=== PATIENT | female | born 1995 | race Caucasian/White ===

== ENCOUNTER 2024-04-25 17:29 | Outpatient (CLI) | payer OTHER, SELFPAY ==
[2024-04-25 22:02] LABS: Chlamydia DNA Amplified* NOT DETECTED (No Detected); GC DNA Amplified* NOT DETECTED (No Detected)
== END 2024-04-25 17:30 | disposition home or self-care (01) ==
PROVIDERS: Visit Provider Physician Assistant
DX: Z34.91 Encounter for supervision of normal pregnancy, unspecified, first trimester (principal); Z3A.12 12 weeks gestation of pregnancy
CPT/HCPCS: 86592; 86703; 86704; 86706; 86762; 86787; 86803; 86850; 86900; 86901; 87086; 87340; 87491; 87591

== ENCOUNTER 2024-06-16 10:03 | Outpatient (CLI) | payer OTHER, SELFPAY ==
--- NOTE | 2024-06-16 10:15 | CRLHL7_ITS ---
For Patients: As a result of the Century Cures Act, medical imaging exams and procedure reports are released immediately into your electronic medical record. You may view this report before your referring provider. If you have questions, please contact your health care provider. INDICATION: Evaluate anatomy. COMPARISON: none TECHNIQUE: Real time cherry scale imaging of the fetus was performed as well as color Doppler analysis of the umbilical vessels. FINDINGS: Sonographic imaging demonstrates a single living intrauterine gestation. Fetus demonstrates a regular cardiac rate of 141 beats per minute. Fetus has a vertex position. The placenta lies anteriorly without evidence of placenta previa. Edge of the placenta is located 4.6 cm from the internal cervical os. Amniotic fluid volume appears normal. Single deepest vertical pocket: 4.7 cm. The cervix is closed and measures 4.2 cm in length. The composite ultrasound gestational age is calculated at 20 weeks 0 days with an estimated sonographic due date of 11/03/2024. The estimated weight is 338 grams which lies at the 65th %. The following biometric measurements were obtained: Biparietal diameter: 4.7 cm/20 weeks 2 days 70th% Head circumference: 17.7 cm/20 weeks 1 day 59th% Abdominal circumference: 14.7 cm/20 weeks 0 days 50th% Femur length: 3.3 cm/20 weeks 2 days 61st% The HC/AC ratio measures: 1.20 range (1.08-1.25) On anatomic survey, there is a normal appearance of the cerebral ventricles, cavum septi pellucidi, cisterna magna and cerebellum. The nose, lips, and facial profile appear normal. The cervical, thoracic and lumbar spine are well visualized and appear normal. There is a normal four-chamber heart view and the left and right ventricular outflow tracts appear normal. The diaphragm and stomach appear normal. Normal bladder. Bilateral pelviectasis measuring 4.8 millimeters on the right and 3.8 millimeters on the left. There is a normal three-vessel cord and cord insertion site. The four extremities appear normal. IMPRESSION: Concordance of clinical and sonographic dating. Bilateral renal pelviectasis measuring up to 4.8 millimeters. Remainder of the anatomic survey is normal. Follow-up in the 3rd trimester recommended. Dictated by John Mcgowan MD @ 06/16/2024 1:17:19 PM (Electronically Signed)
== END 2024-06-16 10:04 | disposition home or self-care (01) ==
LOC: US 10:04
PROVIDERS: Visit Provider Registered Nurse
DX: Z34.92 Encounter for supervision of normal pregnancy, unspecified, second trimester (principal); Z3A.20 20 weeks gestation of pregnancy
CPT/HCPCS: 76805

== ENCOUNTER 2024-07-14 07:04 | Outpatient (CLI) | payer OTHER, SELFPAY ==
--- NOTE | 2024-07-14 07:15 | CRLHL7_ITS ---
For Patients: As a result of the Century Cures Act, medical imaging exams and procedure reports are released immediately into your electronic medical record. You may view this report before your referring provider. If you have questions, please contact your health care provider. INDICATION: MISSING CARDIAC VIEWS AND DILATED RENAL PELVIS COMPARISON: 03/29/2024 TECHNIQUE: Real time cherry scale imaging of the fetus was performed. FINDINGS: Sonographic imaging demonstrates a single living intrauterine gestation. Fetus demonstrates a regular cardiac rate of 155 beats per minute. Fetus has a vertex position. The placenta lies anteriorly. Amniotic fluid volume appears normal and there is a single deepest vertical pocket: 5.2 cm. The estimated weight is 674gm which lies at the 59th %. BPD 56th percentile. HC 45th percentile. AC 47th percentile. FL 58th percentile. The HC/AC ratio measures 1.15 range (1.04-1.22). Normal kidneys and heart. IMPRESSION: Sonographic gestational age 24 weeks 2 days and sonographic due date of 11/01/2024. Good correlation with dates. Estimated weight is 59th percentile. Abdominal circumference 47th percentile. Normal kidneys. Cardiac structures normal Dictated by John Mcgowan MD @ 07/14/2024 3:52:58 PM (Electronically Signed)
== END 2024-07-14 07:05 | disposition home or self-care (01) ==
LOC: US 07:05
PROVIDERS: Visit Provider Obstetrics & Gynecology
DX: O36.8320 Maternal care for abnormalities of the fetal heart rate or rhythm, second trimester, not applicable or unspecified (principal); Z3A.24 24 weeks gestation of pregnancy
CPT/HCPCS: 76816

== ENCOUNTER 2024-08-04 07:58 | Outpatient (CLI) | payer OTHER, SELFPAY | END 2024-08-04 07:59 | disposition home or self-care (01) | LOC: NFLDREF 08-08 14:29 | PROVIDERS: Visit Provider Obstetrics & Gynecology | DX: Z34.92 Encounter for supervision of normal pregnancy, unspecified, second trimester (principal); Z3A.26 26 weeks gestation of pregnancy | CPT/HCPCS: 86592 ==

== ENCOUNTER 2024-10-06 14:05 | Outpatient (CLI) | payer OTHER, SELFPAY ==
[2024-10-07 15:18] LABS: Strep B DNA Probe Negative (Negative)
[2024-10-07 21:50] LABS: Strep B Susceptibility Needed? No
== END 2024-10-06 14:06 | disposition home or self-care (01) ==
LOC: NFLDREF 14:05
PROVIDERS: Visit Provider Obstetrics & Gynecology
DX: Z34.91 Encounter for supervision of normal pregnancy, unspecified, first trimester (principal); Z3A.12 12 weeks gestation of pregnancy
CPT/HCPCS: 87081; 87653

== ENCOUNTER 2024-11-01 16:07 | Inpatient (IN) | payer OTHER, SELFPAY ==
[2024-11-01 16:20] VITALS: PULSE 67; O2SAT 98
[2024-11-01 16:22] VITALS: BP 109/68; PULSE 71
[2024-11-01 16:33] VITALS: RESP 16; TEMP 36.4
[2024-11-01 16:55] VITALS: BMI 35.4
--- NOTE | 2024-11-01 16:59 | W.PM.LDBA ---
Subjective History of Present Illness Time Seen by Provider: 16:45 Date Seen: 11/01/24 Narrative: Patient is being admitted to Labor and Delivery for elective induction of labor. She is a 28 year old at 39 4/7 weeks gestation. Her full history and physical was dictated by Dr. Cox on 10/13/24. Please see this for details. She feels well. Admits to some low abdominal cramping, unchanged over the last couple of weeks. Endorses good movement. Denies unusual vaginal discharge, leakage of fluid or vaginal bleeding. Unaware of contractions. Specific Issues/Plans GIRL! -surprise name H&P done by Dr. Cox on 10/13/24. confirmation & first-trimester ultrasound with [facility], did not have 1st OB appointment/labs # history of depression, discontinued Wellbutrin with positive test. Doing well and would like to remain off at this time #Dilated renal pelviectasis measuring up to 4.8 mm @ 20 weeks 3rd trimester ultrasound recommended: normal at ~24 weeks at the time of f/u US Covid: 06/16/2024 Flu: 06/16/2024 Tdap: 08/25/2024 RSV: 09/08/24 GBS negative OB - Problem Based A/P Additional Plan (1) Encounter for induction of labor: Status: Acute Delivery/Labor/Induction Plan Induction method: per misoprostol protocol OB Result Labs Blood Type: B (+) positive Rubella: immune RPR/VDLR: nonreactive GBS Status: negative HBsAG: negative OB Exam Physical Exam Vital signs: Temp Pulse Resp BP Pulse Ox 97.5 F L 71 16 109/68 98 11/01/24 16:33 11/01/24 16:22 11/01/24 16:33 11/01/24 16:22 11/01/24 16:20 Detailed Labor and Delivery Exam Patient Gravid: Yes Dilation (cm): 2 Effacement (%): 70 Cervix position: mid Consistency: medium Cervical ripeness score: 7 Contraction Frequency: q 4 minutes Contraction duration (sec): 60 Tachysystole: No Contraction intensity: Mild Fetus (Single) Station: -1 Amniotic Membrane Status: intact Heart Rate Baseline: 120 Monitor Accelerations: Present Monitor Decelerations: None Field Administrative Assistant Variability: Moderate (6-25)
[2024-11-01] MEDS: miSOPROStoL 25 MCG/0.25 TABLET VAGINAL (17:00)
[2024-11-01 20:58] VITALS: BP 104/64; PULSE 82; RESP 18; TEMP 36.6
[2024-11-01] MEDS: hydrOXYzine pamoate 25 MG CAPSULE 100 MG PO (22:43)
[2024-11-01] MEDS: MORPHINE 10 MG/ML inj IM (22:44)
[2024-11-01 22:49] VITALS: BP 108/72; PULSE 70; RESP 16; TEMP 36.6
[2024-11-02] VITALS (81 sets, daily range): BP systolic 78–142; BP diastolic 44–77; PULSE 43–157; RESP 16; TEMP 36.5–37.6; O2SAT 98–100
[2024-11-02] MEDS: LACTATED RINGERS 1000 ML 1,000 ML 1200 ML IV (02:30)
[2024-11-02 02:45] LABS: Basophils Absolute Auto 0.02 K/uL (0.00-0.30); Basophils Percent Auto 0.2 % (0.0-3.0); Eosinophils Absolute Auto 0.06 K/uL (0.00-0.50); Eosinophils Percent Auto 0.5 % (0.0-7.0); Hematocrit 38.7 % (33.0-51.0); Hemoglobin* 12.9 gm/dL (12.0-16.0); Immature Granulocytes Abs Auto 0.04 K/uL (0.00-0.30); Immature Granulocytes Pct Auto 0.4 %; Lymphocytes Absolute Auto 2.46 K/uL (0.90-2.90); Lymphocytes Percent Auto 22.5 % (20-44); Mean Corpuscular HGB Conc 33 gm/dL (32-36); Mean Corpuscular Hemoglobin 32 pg (26-34); Mean Corpuscular Volume 95 fL (80-100); Monocytes Percent Auto 8.2 % (0.0-11.0); Neutrophils Absolute Auto 7.45 K/uL (1.7-7.0); Neutrophils Percent Auto 68.2 % (42.0-72.0); Platelet Count* 182 K/uL (140-440); RDW Coefficient of Variation % 13.7 % (11.5-15.5); Red Blood Count 4.07 m/uL (4.00-5.20); Slide Review Reflex No; White Blood Count* 10.92 K/uL (4.50-11.00)
[2024-11-02] MEDS: LACTATED RINGERS 1000 ML 1,000 ML 125 ML IV (03:31)
[2024-11-02] MEDS: ROPIVACAINE 0.2% 100 ml 100 ML 12 MG EPIDURAL ×2 (03:34→11:18)
[2024-11-02] MEDS: BUPIVACAINE 0.25% PF 10 ML 10 ML ML EPIDURAL (03:35)
--- NOTE | 2024-11-02 03:46 | PM.ANBPRC ---
[facility] Medical History Depression ?F32.A - Depression, unspecified (ICD-10) Surgical History History of wisdom tooth extraction ?K08.409 - Partial loss of teeth, unspecified cause, unspecified class (ICD-10) Social History Narrative: SOCIAL HISTORY: Occupation: Outpatient therapist. Marital status: Read. Orthodox/cultural needs: no. Chemical or radiation exposure: no. Pre- tobacco use: no. Pre- alcohol use: no. Current tobacco use: no. Current alcohol use: no. Recreational drug use: no. Dietary restrictions: no. Blood transfusion acceptable in an emergency: yes. PSYCHOSOCIAL HISTORY: History of depression or currently depressed: yes, history. Current or past physical, emotional, or sexual mistreatment: Denies. Problems that will make it hard to make it to appointments: Denies. What is your current living situation?: I presently have a place to live Problems where you live: no known problems In the past 12 months, utilities in danger of being shut off: no In past 12 months, lack of transportation kept you from medical appts, meetings, work, or getting things needed for daily living: no In the past 12 mos, have been you worried that your food would run out before you had money to buy more?: never true In the past 12 mos, the food you bought just didn't last and you didn't have money to buy more?: never true Smoking Status: Never smoker How often does anyone, including family, friends and others, physically hurt you: never How often does anyone, including family, friends and others, insult or talk down to you: never How often does anyone, including family, friends and others, threaten you with harm: never How often does anyone, including family, friends and others, scream or curse at you: never Meds Home Medications and Allergies Home Medications ?Medication ?Instructions ?Recorded ?Confirmed ?Type [id number] 3-fat com #1 27 1 cap PO DAILY 04/25/24 11/01/24 History mg-1 mg-300 mg capsule Allergies Allergy/AdvReac Type Severity Reaction Status Date / Time No Known Drug Allergies Allergy Verified 11/01/24 16:32 Results Labs Labs: Laboratory Results - last 24 hr 11/02/24 02:15 WBC 10.92 RBC 4.07 Hgb 12.9 Hct 38.7 MCV 95 MCH 32 MCHC 33 RDW Coeff of Rodrigue 13.7 Plt Count 182 Neut % (Auto) 68.2 Lymph % (Auto) 22.5 Kemper % (Auto) 8.2 Eos % (Auto) 0.5 Baso % (Auto) 0.2 Neut # (Auto) 7.45 H Lymph # (Auto) 2.46 [place]per # (Auto) 0.90 Eos # (Auto) 0.06 Baso # (Auto) 0.02 Abs Immat Gran (auto) 0.04 Imm/Tot Granulo (auto) 0.4 Vital Signs Vital Signs: Last Vital Signs Temp 97.9 F 11/02/24 00:59 Pulse 83 11/02/24 03:42 Resp 16 11/01/24 22:49 BP 132/58 L 11/02/24 03:42 Pulse Ox 99 11/02/24 03:40 Weight: 90.718 kg Height: 160.02 cm Anesthesia Procedures Epidural Insertion Patient Location: OB Start Time: 03:00 Stop Time: 03:47 Start Date: 11/02/24 Stop Date: 11/02/24 Reason for Block: procedure for pain Patient Position: sitting Performed By: Oscar Qursehi Preanesthetic Checklist: IV checked, risks and benefits discussed, monitors and equipment checked, pre-op evaluation, timeout performed and anesthesia consent Prep: chlorhexidine gluconate Monitoring: blood pressure monitoring, continuous pulse oximetry and heart rate Approach: midline Vertebral Space: lumbar (1-5) Epidural Technique: RANDA saline Needle Type: Tuohy needle Injection Technique: continuous catheter Needle gauge: 17 Needle Length (cm): 10 cm Needle Insertion Depth (cm): 7 Catheter Gauge: 19 Catheter Type: multi-orifice Catheter at skin depth (cm): 13 Test Dose Result: negative and lidocaine 1.5% with epinephrine 1 to 200,000
[2024-11-02] MEDS: PHENYLEPHRINE 100 MCG/ML SYRINGE IVP ×2 (04:23→04:44)
[2024-11-02] MEDS: LACTATED RINGERS 1000 ML 1,000 ML 525 ML IV (11:20)
[2024-11-02] MEDS: OXYTOCIN 30 unit/500 ML in NS 30 UNIT/500 ML BAG 300 UNIT IVPB (14:05)
--- NOTE | 2024-11-02 17:15 | W.PM.VAGDEL1 ---
Procedure Delivery date: 11/02/24 Procedure Done: Global Events: Labor Induction Intrapartal Events: Distress Delivery monitor: external FHT Route of delivery: Laceration description: Vaginal - 1st Degree Delivery repair: Vicryl Estimated blood loss (mL): 50 Anesthesia type: Epidural Disposition: floor Narrative: Eli is a 28 year-old admitted on 11/01/24 at 39 and 5/7 weeks gestation here for an elective induction of labor. She received one dose of misoprostol 25 mcg and went into labor on her own. GBS negative Labor Analgesia: Epidural Pitocin: Only for 3rd stage management SROM: 11/02/2024 at 0433, with clear fluid Labor onset: 11/02/2024 at 0247 Complete: 11/02/2024 at 1228 Pushin11/02/2024 at 1239 heart tones during second stage were category II due to variables with pushing but she was making great descent. Moderate variability and + accels. 3 minutes of bradycardia to 90s bpm at and At 1404 a viable female delivered in vertex OT presentation over intact via spontaneous vaginal delivery. The infant's body was delivered in the usual manner without difficulty. The infant was placed on maternal abdomen. The cord was clamped and cut after a 30-60 second delay. The nose and mouth were bulb suctioned. Infant weight: pending. 7 at 1 minute and 9 at 5 minutes. Shoulder dystocia: No. Nuchal cord: Tight nuchal x 2 with and additional loop wrapped around the body. Delivered through and then reduced. Placenta delivered spontaneously and complete at 1408 with a 3-vessel cord. Placenta examined and noted to be complete. The cervix and vagina were inspected for lacerations, and 1 degree vaginal laceration was noted. Perineal Skin intact. Laceration(s): 1st degree vaginal laceration, repaired with 2-0 vicryl Complications: None Estimated blood loss: 50 cc. Sponge and needles counts are correct. Mother and infant were stable at the time of this note. [place] Infant Infant Gender: Female total score - 1 minute: 7 total score - 5 minute: 9
[2024-11-02] MEDS: IBUPROFEN 600 MG TABLET PO (17:51)
[2024-11-03 00:06] VITALS: BP 98/74; PULSE 68; RESP 16; TEMP 36.6; O2SAT 98
[2024-11-03] MEDS: IBUPROFEN 600 MG TABLET PO ×4 (01:30→20:11)
[2024-11-03] MEDS: ACETAMINOPHEN 500 MG TABLET 1000 MG PO ×4 (04:15→23:16)
[2024-11-03 04:21] VITALS: BP 104/82; PULSE 64; RESP 16; TEMP 36.5; O2SAT 98
[2024-11-03 06:37] LABS: Hemoglobin* 11.3 gm/dL (12.0-16.0)
[2024-11-03 07:14] VITALS: BP 111/74; PULSE 70; RESP 16; TEMP 36.3; O2SAT 97
[2024-11-03] MEDS: DOCUSATE SODIUM 100 MG CAPSULE PO (07:35)
--- NOTE | 2024-11-03 07:54 | PM.OBPNVD1 ---
Documented by User: Katarina Garrett 11/03/24 08:15 OB - PN:Subj Subjective Time Seen by Provider: 07:15 Date Seen: 11/03/24 Narrative: Princess is a 28 y.o. G 1 P 1 who was admitted to L & D for Elective IOL.? She had a that was complicated. The patient feels well.? The pain is well controlled with current medications.? She reports uterine cramping and back pain as the main areas of pain.? She is breast feeding and reports sore nipples from tongue tie. the patient has done well.? Vitals have been stable.? She has remained afebrile.? Has a good appetite, is tolerating a general diet.? She is voiding without difficulty.? She is unsure if she is passing gas and has not had a bowel movement.?She is ambulating and denies any dizziness.? Has small amount of rubra lochia. Reports no clots. She is up ad clarisse in room, with and infant at bedside. holding and supportive. OB - PN: Obj Exam Physical Exam: Vital signs: Temp Pulse Resp BP Pulse Ox O2 Del Method 97.4 F L 70 16 111/74 97 Room Air 11/03/24 07:14 11/03/24 07:14 11/03/24 04:21 11/03/24 07:14 11/03/24 07:14 11/03/24 07:14 Narrative: Assessment non-remarkable except for those mentioned below. Fundus firm, even. Constitutional: Constitutional: no acute distress Detailed Abdominal Exam: Bowel sounds: hypoactive Routine Exam: Comments: Declined perineal exam Detailed Extremities Exam: Vascular: Peripheral pulses: 2+: radial (L), 2+: radial (R), 2+: dorsalis pedis (L) and 2+: dorsalis pedis (R) Detailed Upper Extremity Exam: Comments: Edema to hands bilaterally, +1 Detailed Lower Extremity Exam: Comments: Edema to lower extremities, bilaterally, +2 OB - PN: Obj Data Labs Labs: Laboratory Results - last 24 hr 11/03/24 06:27 Hgb 11.3 L OB - PN: A/P Delivery Assessment and Plan (1) care and examination immediately after delivery: Status: Acute (2) Lactating mother: Status: Acute Plan 28 yo, inpatient SP . Plan for DC tomorrow. Documented by User: Moira Marquez CNM 11/03/24 17:59 OB - PN:Subj Subjective Narrative: Princess is a 28 y.o. G 1 P 1 who was admitted to L & D for Elective IOL.? She had a that was complicated. The patient feels well.? The pain is well controlled with current medications.? She reports uterine cramping and back pain as the main areas of pain.? She is breast feeding and reports sore nipples from tongue tie. the patient has done well.? Vitals have been stable.? She has remained afebrile.? Has a good appetite, is tolerating a general diet.? She is voiding without difficulty.? She is unsure if she is passing gas and has not had a bowel movement.?She is ambulating and denies any dizziness.? Has small amount of rubra lochia. Reports no clots. She is up ad clarisse in room, with and infant at bedside. holding infant and supportive. OB - PN: Obj Exam Physical Exam: Narrative: Assessment non-remarkable except for those mentioned below. Fundus firm, even. GENERAL APPEARANCE:? normal affect, alert, no distress MOOD:? appropriate CHEST:? clear to auscultation HEART:? regular rate and rhythm ABDOMEN:? soft, non-tender the uterine fundus is At Umbilicus, Midline and is appropriate for the stage of recovery. EXTREMITIES:? normal and no edema OB - PN: A/P Delivery Assessment and Plan (1) care and examination immediately after delivery: Status: Acute (2) Lactating mother: Status: Acute Plan day: 1 Plan: routine care Comments: 28 yo, inpatient SP . Plan for DC tomorrow. Encouraged to see or work with RN on overnight. I,?Moira Marquez APRN, CNM, was present for visit and have reviewed and agree with documentation by the Certified Nurse Midwifery Student.
--- NOTE | 2024-11-03 09:47 | PM.ANPOST ---
Post Anesthesia Note Post Anesthesia Note Patient seen: Inpatient Respiratory Status: adequate Cardiovascular Status: adequate Mental Status: baseline Pain: adequate Temp: baseline Anesthetic awareness: N/A Complications: none Follow care: none
[2024-11-03 11:04] VITALS: BP 106/63; PULSE 83; RESP 18; TEMP 36.8; O2SAT 98
[2024-11-03 15:11] LABS: Rapid Plasma Reagin (RPR) Non Reactive (Non Reactive)
[2024-11-03 17:24] VITALS: BP 113/72; PULSE 77; RESP 16; TEMP 36.5; O2SAT 97
[2024-11-03 20:56] VITALS: BP 105/71; PULSE 69; RESP 16; TEMP 36.5; O2SAT 97
[2024-11-04] MEDS: IBUPROFEN 600 MG TABLET PO ×2 (04:07→10:41)
[2024-11-04 04:08] VITALS: BP 114/78; PULSE 74; RESP 16; O2SAT 98
[2024-11-04 08:04] VITALS: BP 113/77; PULSE 65; RESP 16; TEMP 36.9; O2SAT 98
[2024-11-04] MEDS: ACETAMINOPHEN 500 MG TABLET 1000 MG PO (08:18)
--- NOTE | 2024-11-04 09:36 | PM.OBDSVD1 ---
DS: Providers Provider Time Seen by Provider: 09:36 Date Seen: 11/04/24 Date of admission: 11/01/24 16:07 Primary care physician: Not a Local Provider Admitting Clinician: Yue Cox MD Attending Physician on discharge: Yue Cox MD Date of Discharge: 11/04/24 DS: Diagnosis Discharge Diagnosis (1) Lactating mother: Status: Acute (2) care and examination immediately after delivery: Status: Acute Exam Narrative: Exam Narrative: Physical exam: General: No acute distress Psych: Alert and oriented x4, full affect HEENT: Normocephalic, atraumatic Neck: No cervical adenopathy, no thyromegaly Heart: Regular rate and rhythm, no murmur rub or gallop Lungs: Clear to auscultation bilaterally Abdomen: Soft, no tenderness, rebound, or guarding Skin: No lesions or rashes Lower extremities: No edema or erythema Pelvic exam: Scant lochia Const: Vital Signs, click to edit/add: Vital Signs - 24 hr 11/03/24 11:04 11/03/24 17:24 11/03/24 20:56 Temperature 98.2 F 97.7 F 97.7 F Pulse Rate [Pulse Oximeter] 83 77 69 Respiratory Rate 18 16 16 Blood Pressure [Le ft Arm] 106/63 113/72 105/71 Pulse Oximetry 98 97 97 Oxygen Delivery Me thod Room Air Room Air Room Air 11/04/24 04:08 11/04/24 08:04 Temperature 98.4 F Pulse Rate [Pulse Oximeter] 74 65 Respiratory Rate 16 16 Blood Pressure [Le ft Arm] 114/78 113/77 Pulse Oximetry 98 98 Oxygen Delivery Me thod Room Air Room Air OB - DS: Summary Hospital Course Hospital Course: Eli is a 28 year-old admitted on 11/01/24 at 39 and 5/7 weeks gestation here for an elective induction of labor. She received one dose of misoprostol 25 mcg and went into labor on her own. She had an uncomplicated vaginal delivery. She delivered a viable female (Adelita). She is breast feeding. the patient has done well. Overnight patient had no complaints. Her pain is well controlled on oral pain medications. She is tolerating a regular diet. She has passed flatus and BM x 2. She is ambulating without difficulty. Lochia is scant. She is urinating without abreu. Patient denies chest pain, SOB, n/v, headache, RUQ pain, vision changes, dizziness. Peripartum Data delivery method: Vaginal Laceration description: Vaginal - 1st Degree Episiotomy description: None complications: none [place] Gender: Female Time Spent with Patient Time attestation: Total time spent providing and/or coordinating discharge services: Time spent: Less than 30 minutes Discharge Plan Discharge Disposition: Home, Self-Care Date of Admission: 11/01/24 16:07 Consulting Providers: Karissa Murphy Primary Care Provider: Provider,Not a Local Condition: Stable Anticipated Discharge Date/Time: 11/04/24 09:37 Discharge Medications: New acetaminophen 500 mg Tablet 1,000 mg PO Q6H PRN14 Days Qty: 30 0RF Dermoplast (with menthol) 20-0.5 % Aerosol 1 spray topical QID PRNQty: 85 0RF ibuprofen 600 mg Tablet 600 mg PO Q6H PRN14 Days Qty: 30 0RF Lanolin (HPA) 100 % Cream 1 applic topical Q1H PRNQty: 21 0RF Continued LLB-[id number]-[id number]-omega 3-fat com #1 27-1-300 mg capsule 1 cap PO DAILY Discharge Orders: Discharge Order (Routine); Ordered 11/04/24 Ordered By: Karissa Murphy Consulting provider completed their portion of the discharge: Yes Patient Education: Vaginal Delivery (DC), OB Vaginal/Breast Feeding Additional Instructions: Follow Up [facility] a [facility]: Optional 2 week visit: Answer concerns for care, screen for anxiety/depression. 6 week visit: Annual exam. Activity Level: Activity as Tolerated Discharge Diet: Regular Follow Up Appointments: Provider,Not a Local [Primary Care Provider] - Forms: niiuth Info Instructions Discharge Comments: Discharge instructions were reviewed with the patient including signs and symptoms of infection and home going medications. Lifting Restrictions: 20 pounds for 1 week Off Work or School for 6 weeks. Nothing vaginally for 6 weeks Symptoms to report to doctor: -Bleeding that saturates more than one pad per hour ?-Passing clots larger than the size of a golf ball ?-Pain not relieved by prescribed medication ?-Fever above 100.4 degrees Fahrenheit ?-A foul vaginal odor ?-Difficulty in emotions, mood and functions ?-Thoughts of hurting yourself and/or ?-Painful, reddened area in your breast ?-Any drainage, redness or tenderness in your IV/epidural site ?-Severe headache that doesn't improve after taking medications ?-Changes in vision, including temporary loss of vision, blurred vision, and/or light sensitivity ?-Upper abdominal pain (usually under ribs on the right side) ?-Decrease in urination or painful, frequent urinating ?-Chest pain ?-Shortness of breath ?-Tenderness or pain with redness and/swelling in the calf(s) of your leg Follow Up with a [facility] provider: ? Optional 2 week visit: Answer concerns for infant care, screen for anxiety/depression. ? 6 week visit: Annual exam. consultation services are available to all mothers and babies for the first year after delivery.? To make an appointment, please call [phone].
== END 2024-11-04 12:30 | disposition home or self-care (01) | DRG 807 ==
PROVIDERS: Obstetrics & Gynecology; Admitting Provider Obstetrics & Gynecology; Visit Provider Obstetrics & Gynecology
DX: O99.344 Other mental disorders complicating childbirth (principal); Z37.0 Single live birth; O76 Abnormality in fetal heart rate and rhythm complicating labor and delivery; O70.0 First degree perineal laceration during delivery; F32.A Depression, unspecified; Z3A.39 39 weeks gestation of pregnancy
CPT/HCPCS: 01967; 36415; 59200; 85018; 85025; 86592; 86850; 86900; 86901; A9270; J0665; J2270; J2371; J2795; J7120

== ENCOUNTER 2024-11-09 09:51 | Outpatient (CLI) | payer OTHER, SELFPAY ==
--- NOTE | 2024-11-09 13:29 | W.PM.LAC.MC ---
Consult Note - Mom Date of Visit Date of visit: 11/09/24 Reason for consultation: Assistance Needed Visit Code: Visit Patient's Information Phone number: [phone] : 1 Para: 1 Allergies No Known Drug Allergies Allergy (Verified 11/01/24 16:32) Mother's Medical History: Medical History (Updated 11/03/24 @ 17:31 by Moira Marquez CNM) Depression ?F32.A - Depression, unspecified (ICD-10) Work Plans: 6 months Delivery Information Delivery type: Vaginal Gestational Age: 39+5 Gestational Weight For Age: AGA Weight: 3.2 kg Discharge Weight: 2.97 kg Percentage weight loss: 7 Baby's Information Medications: started Vitamin D yesterday Baby's Age at Visit: 7 days Baby's Provider or Clinic: [facility] Jaundice: Yes Past Experience Past Experience: No Current Frequency of Day Feedings: every 2 hours day and night, but sometimes sleepy for feedings Both Breasts: Yes Suck: strong Latch: currently using a nipple shield Length of Time: 15-30 min ea side Goals: not sure, will add bottles at some point Pumping Pumping: Yes Quantity Pumped: 1-1.5 oz after feeding as needed to relieve fullness Supplementing EBM Supplement: No Formula Supplement: No Baby Elimination Number of Wet Diapers a Day: ea feeding Number of BM a Day: 5-6/day, yellow and seedy Breast/Nipple Condition Breast Information: Breasts are symmetrical with rounded lower quadrants, intramammary distance is less than 1.5 inches. No erythema. Nipples are supple, everted prior to feeding. 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), Restricted mid-range and History of frenotomy Palate: Average Lips: Relaxed and Symmetrical Jaw Alignment: Symmetrical Mucosa: [place], moist Onsite Observation Pre-Feed weight: 3.144 kg (gained 166mg in 3 days) Post-Feed weight: 3.198 kg (10 min nursing on each breast) Milk Transferred (mL): 54 Position: Cross cradle (on left) and Football (on right) Attachment/latch-on achieved: Easily Suck pattern: Suck burst and normal rest Swallow: Audible, consistent Behavior following feed: Alert, content Pre-Nursing Left Nipple: Within Normal Limits Pre-Nursing Right Nipple: Within Normal Limits Post-Nursing Left Nipple: Within Normal Limits Post-Nursing Right Nipple: Within Normal Limits Assessments/Interventions Assessments/Interventions: observation Babe able to latch easily to mom's RIGHT breast in football hold; babe able to latch deeply and mom reports the latch is comfortable. Babe nurses for 10 minute with audible swallows Babe then latches to mom's LEFT breast in the cross cradle hold; babe able to latch deeply and comfortably for mom, but mom notices she prefers football hold over cross cradle hold Babe transfers 34 ml in 10 min on RIGHT side and then 20ml in 10 min on LEFT side; total of 54 ml transferred in 20 min Education provided: Early feeding cues to maximize timing of latching, Asymmetric latch technique for wide/deep latch to increase milk, Transfer for baby and increase comfort for mom, Supply/demand nature of milk supply, Need for frequent stimulation/milk removal, Sore nipple treatment options, Alternative feeding methods (SNS, cup, finger feeding, bottling), Pumping for milk management (pump just enough for comfort so as not to shift into oversupply) and Milk collection, storage Handouts Provided: Lymphatic massage in Feeding Plan: Discussed weight gain from 11/06 visit and milk transferred today; okay to move feedings to every 2-3 hours (vs every 2 hours); consider every 2-3 hours during the day and allow 3 hour stretches at night unless baby wakes up before 3 hr sammi and asks for a feeding. Continue to offer both breasts ea feeding; if feeding on one side past 15 min, unlatch and transfer to other breasts for increase milk intake. Pump after feedings only as needed for comfort Began introduction re: adding bottles around 4 weeks of age; encouraged to call back with questions on this process as the time gets closer Discussed follow up for ankylglossia; anterior clipped here in hospital, still has posterior tethering Referral information given for Craniosacral therapy and Pediatric Dentistry and discussed roles of each Parents will discuss options and evaluate for need of follow up as continues. Follow-Up Suggested follow up: Appointment as needed Recommend baby be seen by provider for:: regular check up next week Time Spent Time spent with patient (min): 90 (reviewing EMR and face to face with patient, and ) Meds Home Medications and Allergies Home Medications ?Medication ?Instructions ?Recorded ?Confirmed ?Type [id number] 3-fat com #1 27 1 cap PO DAILY 04/25/24 11/01/24 History mg-1 mg-300 mg capsule Allergies Allergy/AdvReac Type Severity Reaction Status Date / Time No Known Drug Allergies Allergy Verified 11/01/24 16:32
== END 2024-11-09 09:52 | disposition home or self-care (01) ==
LOC: OB LAC 09:53
PROVIDERS: Visit Provider Obstetrics & Gynecology
DX: Z39.1 Encounter for care and examination of lactating mother (principal)
CPT/HCPCS: G0463

== ENCOUNTER 2024-12-15 10:23 | Outpatient (CLI) | payer OTHER, SELFPAY ==
[2024-12-16 18:15] LABS: HPV Source Cervix; HPV, High Risk by TMA Not Detected
== END 2024-12-15 10:24 | disposition home or self-care (01) ==
PROVIDERS: Visit Provider Advanced Practice Midwife
DX: Z12.4 Encounter for screening for malignant neoplasm of cervix (principal); Z11.51 Encounter for screening for human papillomavirus (HPV)
CPT/HCPCS: 87624; 87625; 88141; 88142